=== PATIENT | male | born 1955 | race American Indian/Alaskan Native ===

== ENCOUNTER 2019-02-15 12:49 | Inpatient (IN) | payer OTHER ==
[~2019-02-15] VITALS: Ht 175.3 cm; Wt 109.3 kg
[2019-02-15] MEDS ORDERED: FUROSEMIDE 40 MG/4 ML VIAL IV ONE (13:00)
[2019-02-15] MEDS ORDERED: methylPREDNISolone SOD SUCC 125 MG/2 ML VL IV ONE (13:00)
[2019-02-15 13:44] LABS: Basophils # (auto) 0 uL; Basophils % (auto) 0.4 % (0.0-2.0); Eosinophils # (auto) 0 uL; Eosinophils % (auto) 0.3 % (0.0-7.0); Hematocrit 48.5 % (41.0-53.0); Hemoglobin 15.6 g/dL (13.5-17.5); Lymphocytes # (auto) 0.9 uL; Lymphocytes % (auto) 19.3 % (10.0-50.0); Mean Corpuscular Hemoglobin 31.2 pg (28.0-32.0); Mean Corpuscular Hgb Conc. 32.2 g/dL (32.0-36.0); Mean Corpuscular Volume 96.6 fL (80.0-100.0); Monocytes # (auto) 0.4 uL; Monocytes % (auto) 8.6 % (0.0-12.0); Neutrophils # (auto) 3.5 uL; Neutrophils % (auto) 71.4 % (37.0-80.0); Nucleated Red Blood Cells % 0.1 %; Platelet Count (auto) 132 10^3/uL (140-450); Red Blood Cells 5.02 10^6/uL (4.5-5.90); Red Cell Distribution Width 14.8 % (11.8-14.3); White Blood Cell 4.9 10^3/uL (4.4-10.8)
[2019-02-15 13:54] LABS: Albumin 3.4 g/dL (3.4-5.0); BUN/Creatinine Ratio 12.6; Calcium 8.7 mg/dL (8.5-10.1); Magnesium 2.1 mg/dL (1.6-2.6); Potassium 3.7 mmol/L (3.5-5.1)
[2019-02-15 14:02] LABS: Bilirubin, Total 1.3 mg/dL (0.2-1.0); Total Protein 7.3 g/dL (6.4-8.2)
[2019-02-15] MEDS ORDERED: NITROGLYCERIN 0.4 MG SL TAB SL PRN (16:00)
[2019-02-15] MEDS ORDERED: MORPHINE SULF INJ 2 MG/ML SYRINGE 1ML IV PRN (16:00)
[2019-02-15] MEDS ORDERED: ONDANSETRON HCL 4 MG/2 ML VIAL IV PRN (16:00)
[2019-02-15] MEDS ORDERED: ACETAMINOPHEN 500 MG TAB PO PRN (16:00)
[2019-02-15] MEDS ORDERED: HYDROcodone-ACET 5/325MG TAB PO PRN (16:00)
[2019-02-15] MEDS ORDERED: OPTISON 3ml Vial for INJ IV ONE (16:51)
[2019-02-15] MEDS: hydrALAZINE HCL 20 MG/ML VL IV PRN (17:29)
[2019-02-15 17:59] VITALS: BP 161/113
[2019-02-15] MEDS: FUROSEMIDE 20 MG/2 ML VIAL IV SCH (18:26)
[2019-02-15 18:55] VITALS: BP 152/90
--- NOTE | 2019-02-15 18:56 | NUR ---
RECEIVED PT FROM ER APPROX. 1800. A/O X 4. SOB . 02 AT 3 LITERS VIA N/C. AMBULATORY. ADMISSION HISTORY COMPLETE.
--- NOTE | 2019-02-15 19:25 | NUR ---
RECEIVED PATIENT LYING IN BED, AWAKE, ALERT, ORIENTED X4. NO S/S OF RESPIRATORY DISTRESS, DENIES SOB AND CHEST PAIN. ORIENTED ON PLAN OF CARE. BED IS LOCKED AND IN LOWEST LEVEL, SIDE RAILS UP X2, CALL LIGHT WITHIN REACH. WILL CONTINUE TO MONITOR
[2019-02-15 21:30] VITALS: BP 152/89
[2019-02-15 21:50] VITALS: BP 152/90
[2019-02-15] MEDS: ATORVASTATIN 20 MG TAB PO SCH (21:56)
[2019-02-15] MEDS: METOPROLOL TARTRATE 25 MG TAB PO SCH (21:57)
[2019-02-16] MEDS: hydrALAZINE HCL 20 MG/ML VL IV PRN (00:17)
[2019-02-16 05:00] VITALS: BP 102/62
[2019-02-16] MEDS: FUROSEMIDE 20 MG/2 ML VIAL IV SCH ×2 (05:55→17:23)
--- NOTE | 2019-02-16 06:00 | NUR ---
WITH RASHES ON THE BACK. PHOTO TAKEN
[2019-02-16 06:39] LABS: Basophils # (auto) 0 uL; Basophils % (auto) 0.3 % (0.0-2.0); Eosinophils # (auto) 0 uL; Eosinophils % (auto) 0.2 % (0.0-7.0); Hematocrit 49.1 % (41.0-53.0); Hemoglobin 15.9 g/dL (13.5-17.5); Lymphocytes # (auto) 0.4 uL; Lymphocytes % (auto) 9.6 % (10.0-50.0); Mean Corpuscular Hemoglobin 30.9 pg (28.0-32.0); Mean Corpuscular Hgb Conc. 32.4 g/dL (32.0-36.0); Mean Corpuscular Volume 95.3 fL (80.0-100.0); Monocytes # (auto) 0.1 uL; Neutrophils # (auto) 3.8 uL; Neutrophils % (auto) 86.9 % (37.0-80.0); Nucleated Red Blood Cells % 0.1 %; Platelet Count (auto) 159 10^3/uL (140-450); Red Blood Cells 5.16 10^6/uL (4.5-5.90); Red Cell Distribution Width 14.5 % (11.8-14.3); White Blood Cell 4.3 10^3/uL (4.4-10.8)
[2019-02-16 06:51] LABS: Potassium 3.8 mmol/L (3.5-5.1)
[2019-02-16 07:00] LABS: Albumin 3.4 g/dL (3.4-5.0); BUN/Creatinine Ratio 16.4; Bilirubin, Total 1.1 mg/dL (0.2-1.0); Calcium 8.8 mg/dL (8.5-10.1); Total Protein 7.4 g/dL (6.4-8.2)
--- NOTE | 2019-02-16 07:22 | NUR ---
PATIENT IS AWAKE, ALERT ORIENTED X4. NO S/S OF DISTRESS. CARE ENDORSED TO AM SHIFT RN
[2019-02-16 08:00] VITALS: BP 141/87
[2019-02-16 08:41] VITALS: BP 141/87
[2019-02-16] MEDS ORDERED: LISINOPRIL 10 MG TAB PO SCH (10:00)
[2019-02-16] MEDS ORDERED: POTASSIUM CHL 20 Meq TABLET PO SCH (10:00)
[2019-02-16] MEDS: PANTOPRAZOLE 40 MG TAB PO SCH (10:09)
[2019-02-16] MEDS: METOPROLOL TARTRATE 25 MG TAB PO SCH ×3 (10:10→22:14)
[2019-02-16 12:35] VITALS: BP 146/95
--- NOTE | 2019-02-16 14:20 | NUR ---
Respiratory note: PT ASSESSED FOR PRN MED NEB TX. PT FOUND TO BE SITTING IN BED TALKING ON THE PHONE, DENIES ANY CURRENT SOB, NO DISTRESS NOTED. HR 68 RR 18 SPO2 96% ON 2L N/C DIMINISHED WITH SCATTERED FINE INSPIRATORY CRACKLES POSTERIORLY. PT STATES HE DOES OCCASIONALLY GET SOB WITH EXERTION. PT AND RN AWARE TO HAVE RT PAGED IF NEEDED.
[2019-02-16 16:44] VITALS: BP 126/77
[2019-02-16] MEDS ORDERED: DEXTROSE (50%) 50ML SYRG IV PRN (17:15)
--- NOTE | 2019-02-16 21:55 | NUR ---
RT NOTE: PT ASSESSED FOR PRN MED NEB TX, PT LAYING IN BED RESTING WITH NO DISTRESS NOTED AT THIS TIME. RR 18, HR 70, SPO2 96% ON 2LPM NC. NO TX INDICATED AT THIS TIME.
[2019-02-16] MEDS: ACETYLCYSTEINE ORAL for CIN 20%(200MG/ML) 4ML PO SCH (22:13)
[2019-02-16] MEDS: InsuLIN REG 1unit/0.01ml Soln (100units/ml) SC SCH (22:14)
[2019-02-16] MEDS: ATORVASTATIN 20 MG TAB PO SCH (22:14)
[2019-02-16] MEDS: ACCU-CHEK COMFORT CURVE STRIP VI SCH (22:14)
[2019-02-17] MEDS: MORPHINE SULF INJ 2 MG/ML SYRINGE 1ML IV PRN (02:37)
--- NOTE | 2019-02-17 02:45 | NUR ---
URINE SAMPLE SENT TO LAB
[2019-02-17 03:23] LABS: Alcohol, Urine < 3.0 mg/dL (0-5); Amphetamine Screen, Urine NEGATIVE (NEGATIVE); Barbiturate Scree,Urine NEGATIVE (NEGATIVE); Benzodiazephine Screen, Urine NEGATIVE (NEGATIVE); Cannabinoid Screen, Urine NEGATIVE (NEGATIVE); Cocaine Screen, Urine NEGATIVE (NEGATIVE); Opiate Scree,Urine NEGATIVE (NEGATIVE); Phencyclidine Screen, Urine NEGATIVE (NEGATIVE)
[2019-02-17 03:57] VITALS: BP 128/82
[2019-02-17] MEDS: ACCU-CHEK COMFORT CURVE STRIP VI SCH ×4 (06:33→22:11)
[2019-02-17] MEDS: InsuLIN REG 1unit/0.01ml Soln (100units/ml) SC SCH ×4 (06:33→22:11)
[2019-02-17] MEDS: FUROSEMIDE 20 MG/2 ML VIAL IV SCH (06:33)
[2019-02-17 07:08] LABS: BUN/Creatinine Ratio 22.5; Calcium 8.9 mg/dL (8.5-10.1); Potassium 3.9 mmol/L (3.5-5.1)
--- NOTE | 2019-02-17 07:13 | NUR ---
PATIENT IS AWAKE, ALERT ORIENTED X4. NO S/S OF DISTRESS. CARE ENDORSED TO AM SHIFT RN
[2019-02-17 08:00] VITALS: BP 136/75
[2019-02-17 08:45] VITALS: BP 136/75
[2019-02-17] MEDS: PANTOPRAZOLE 40 MG TAB PO SCH (09:56)
[2019-02-17] MEDS: hydrALAZINE HCL 25 MG TAB PO SCH ×2 (09:57→22:00)
[2019-02-17] MEDS: METOPROLOL TARTRATE 25 MG TAB PO SCH ×2 (09:57→22:00)
[2019-02-17] MEDS: ISOSORBIDE MONONITRATE ER 60 MG TAB PO SCH (09:58)
[2019-02-17] MEDS: ACETYLCYSTEINE ORAL for CIN 20%(200MG/ML) 4ML PO SCH ×2 (09:59→22:10)
--- NOTE | 2019-02-17 11:35 | NUR ---
Respiratory note: PT ASSESSED FOR PRN MED NEB TX. POX 96% ON 3L NC, HR 60, RR 12. B/S ARE CLEAR THROUGHOUT POSTERIORLY. MED NEB TX IS NOT INDICATED AT THIS TIME. NO SOB NOTED.
[2019-02-17 13:23] VITALS: BP 103/59
[2019-02-17 17:13] VITALS: BP 104/51
[2019-02-17] MEDS: ALBUTEROL SULF 2.5 MG/0.5ML(0.5%) NEB SOLN NEB PRN (19:52)
[2019-02-17 22:00] VITALS: BP 106/61
[2019-02-17] MEDS: ATORVASTATIN 20 MG TAB PO SCH (22:05)
[2019-02-18] VITALS (8 sets, daily range): BP systolic 112–148; BP diastolic 61–97
--- NOTE | 2019-02-18 02:30 | NUR ---
URINE SAMPLE SENT TO LAB
[2019-02-18 03:23] LABS: Protein, Urine 36.9 mg/dL (0.0-11.9)
[2019-02-18] MEDS: MORPHINE SULF INJ 2 MG/ML SYRINGE 1ML IV PRN (04:25)
[2019-02-18] MEDS: InsuLIN REG 1unit/0.01ml Soln (100units/ml) SC SCH ×4 (06:39→22:05)
[2019-02-18] MEDS: ACCU-CHEK COMFORT CURVE STRIP VI SCH ×4 (06:39→22:04)
[2019-02-18 07:06] LABS: INR 1.21 (0.9-1.15); Partial Thromboplastin Time 29.6 sec (23.64-32.05)
[2019-02-18 07:13] LABS: BUN/Creatinine Ratio 28.9; Calcium 8.7 mg/dL (8.5-10.1); Potassium 3.6 mmol/L (3.5-5.1)
--- NOTE | 2019-02-18 07:39 | NUR ---
PATIENT IS AWAKE, ALERT, ORIENTED X4. NO S/S OF DISTRESS. CARE ENDORSED TO AM SHIFT RN
[2019-02-18] MEDS ORDERED: FUROSEMIDE 40 MG/4 ML VIAL IV ONE (09:45)
[2019-02-18] MEDS: IPRATROPIUM BROM 0.5 MG/2.5ML INH SOL NEB PRN ×3 (10:19→19:49)
[2019-02-18] MEDS: ALBUTEROL SULF 2.5 MG/0.5ML(0.5%) NEB SOLN NEB PRN ×3 (10:19→19:49)
--- NOTE | 2019-02-18 10:19 | NUR ---
Respiratory note: PATIENT ASSESSED FOR PRN BREATHING TX Addendum: 02/18/19 at 1051 by DC JACK, RT RT @ [id number] ASSESSED PATIENT FOR PRN BREATHING TX, PATIENT WAS SHORT OF BREATH AND STATED HE WANTED AT BREATHING TX. PATIENT RECEIVED TX WITHOUT ANY ADVERSE REACTIONS AND THEN PLACED ON 2 L NASAL CANNULA. GWEN YOUSSEF IS AWARE AND NOTIFIED.
[2019-02-18] MEDS: hydrALAZINE HCL 25 MG TAB PO SCH ×2 (11:25→22:04)
[2019-02-18] MEDS: ISOSORBIDE MONONITRATE ER 60 MG TAB PO SCH (11:27)
[2019-02-18] MEDS: PANTOPRAZOLE 40 MG TAB PO SCH (11:28)
[2019-02-18] MEDS: METOPROLOL TARTRATE 25 MG TAB PO SCH ×2 (11:29→22:04)
[2019-02-18] MEDS: ACETYLCYSTEINE ORAL for CIN 20%(200MG/ML) 4ML PO SCH ×2 (11:30→22:20)
[2019-02-18] MEDS ORDERED: FUROSEMIDE 20 MG/2 ML VIAL IV ONE (12:15)
--- NOTE | 2019-02-18 13:54 | NUR ---
Respiratory note: PATIENT RECEIVED BREATHING TX WITHOUT ANY ADVERSE REACTIONS. PATIENT IS AWAKE AND ALERT, HR 75, RR 18 SP02 97% ON 2 L NASAL CANNULA. BREATH SOUNDS ARE CLEAR AND DIMINISHED. WILL NOTIFY GWEN YOUSSEF.
--- NOTE | 2019-02-18 19:15 | NUR ---
Opening Shift Note Received report from Geovany HIDALGO. Assumed care of patient, awake and alert. No S/S of distress/SOB or pain. Instructed on POC and to call for assist PRN, will continue to monitor for changes Q1hr and PRN.
[2019-02-18] MEDS: ATORVASTATIN 20 MG TAB PO SCH (22:04)
[2019-02-19 05:00] VITALS: BP 133/78
[2019-02-19 06:14] LABS: BUN/Creatinine Ratio 22.8; Calcium 8.8 mg/dL (8.5-10.1); Potassium 3.3 mmol/L (3.5-5.1)
[2019-02-19] MEDS ORDERED: SODIUM CHLORIDE 0.9% 1,000 ML IV ONE (06:30)
[2019-02-19] MEDS: InsuLIN REG 1unit/0.01ml Soln (100units/ml) SC SCH ×4 (06:45→22:38)
[2019-02-19] MEDS: ACCU-CHEK COMFORT CURVE STRIP VI SCH ×4 (06:45→22:16)
--- NOTE | 2019-02-19 07:03 | NUR ---
Respiratory note: PRN MED NEB TX NOT INDICATED OR WANTED AT THIS TIME. HR 62, RR 16, SPO2 94% ON 1 L NC, BS CLEAR. PT INFORMED TO HIT CALL BUTTON IF FEELING SOB OR WHEEZING
--- NOTE | 2019-02-19 07:14 | NUR ---
Patient maintained on NPO for procedure this morning, no sob/distress or pain. Endorsed care to Geovany HIDALGO.
[2019-02-19 08:00] VITALS: BP 128/73
[2019-02-19 08:07] VITALS: BP 128/73
[2019-02-19] MEDS: METOPROLOL TARTRATE 25 MG TAB PO SCH (10:00)
[2019-02-19] MEDS: hydrALAZINE HCL 25 MG TAB PO SCH (10:00)
[2019-02-19] MEDS: ISOSORBIDE MONONITRATE ER 60 MG TAB PO SCH (10:00)
[2019-02-19] MEDS: ACETYLCYSTEINE ORAL for CIN 20%(200MG/ML) 4ML PO SCH ×2 (10:00→22:16)
[2019-02-19] MEDS: PANTOPRAZOLE 40 MG TAB PO SCH (10:00)
[2019-02-19] MEDS: POTASSIUM CHL 20 Meq TABLET PO SCH (10:00)
[2019-02-19] MEDS ORDERED: FUROSEMIDE 40 MG/4 ML VIAL IV ONE (11:30)
[2019-02-19] MEDS ORDERED: IOHEXOL 350 MG/ML 100ML IJ ONE (12:42)
[2019-02-19] MEDS ORDERED: LIDOCAINE 2%HCL (LOCAL ANESTH.) INJ 20ML MDV ONE (12:42)
[2019-02-19] MEDS ORDERED: fentaNYL CITRATE 100 MCG/2 ML VL ONE (12:47)
[2019-02-19] MEDS ORDERED: ANGIOMAX 250 MG VIAL IV ONE (12:47)
[2019-02-19] MEDS ORDERED: SODIUM CHL 0.9% 0 ML ONE (12:48)
[2019-02-19] MEDS ORDERED: MIDAZOLAM HCL 1MG/1ML-2 ML VIAL ONE (12:48)
[2019-02-19] MEDS ORDERED: IODIXANOL 320MG/ML 100ML BTL IV ONE (12:48)
--- NOTE | 2019-02-19 14:00 | NUR ---
I faxed [employer] order to HARRIET JOHN and JOSEFINA. I spoke with HARRIET Plaster Machine Operator Chela, she is requesting a copy of the results from the [facility] done today.
--- NOTE | 2019-02-19 14:35 | NUR ---
NUTRITION ASSESSMENT NOTES Please refer to link notes of nutrition screen form filed under the intervention section of the plan of care for further details. Est. Needs: 1950 kcal to 2500 kcal (18-23 kcal/kgBW), 73 gms to 88 gms pro (1.0-1.2 gms/kgIBW : 88 kg). Will continue to monitor pertinent labs and reassess nutrient need prn Thank you. Addendum: 02/19/19 at [address] Amended: Links added.
[2019-02-19] MEDS ORDERED: HYDROcodone-ACET 5/325MG TAB PO PRN (15:15)
[2019-02-19] MEDS ORDERED: MORPHINE SULF INJ 2 MG/ML SYRINGE 1ML IV PRN ×2 (15:15→15:30)
[2019-02-19 17:10] VITALS: BP 153/92
--- NOTE | 2019-02-19 19:10 | NUR ---
Opening Shift Note Received report from Geovany HIDALGO. Assumed care of patient, awake and alert. No S/S of distress/SOB or pain. Right groin dressing c/d/i. Instructed on POC and to call for assist PRN, will continue to monitor for changes Q1hr and PRN.
[2019-02-19 20:00] VITALS: BP 144/79
[2019-02-19 22:00] VITALS: BP 144/79
[2019-02-19] MEDS: SACUBITRIL-VALSARTAN 24mg/26mg TAB PO SCH (22:15)
[2019-02-19] MEDS: ATORVASTATIN 20 MG TAB PO SCH (22:15)
[2019-02-19] MEDS: CARVEDILOL 3.125 MG TAB PO SCH (22:16)
--- NOTE | 2019-02-20 01:37 | NUR ---
PT SEEN SLEEPING IN BED ON 2L NC, SPO2 97%, BS CLEAR AND DIMINISHED, PRN NEB TX NOT INDICATED AT THIS TIME.
[2019-02-20 05:00] VITALS: BP 138/77
[2019-02-20 06:46] LABS: Calcium 8.6 mg/dL (8.5-10.1); Potassium 3.8 mmol/L (3.5-5.1)
[2019-02-20] MEDS: ACCU-CHEK COMFORT CURVE STRIP VI SCH ×2 (06:52→11:51)
[2019-02-20] MEDS: InsuLIN REG 1unit/0.01ml Soln (100units/ml) SC SCH ×2 (06:53→11:30)
[2019-02-20 06:54] LABS: BUN/Creatinine Ratio 20.1
--- NOTE | 2019-02-20 07:15 | NUR ---
Care endorsed to Reyna HIDALGO.
--- NOTE | 2019-02-20 08:58 | NUR ---
RT NOTE: WENT TO PTS ROOM TO ASSESS FOR PRN BREATHING TX, PT SITTING UP IN BED. NO S/S OF SOB. PT AWARE TO CALL IF HAVING ANY SOB. HR 71, SPO2 99% ON 2L NC, RR 16. BREATH SOUNDS CLEAR. WILL CONTINUE TO MONITOR PT.
[2019-02-20 09:00] VITALS: BP 132/88
[2019-02-20] MEDS ORDERED: CAR3125T PO (09:20)
[2019-02-20] MEDS ORDERED: GLIP5TAB12 PO (09:20)
[2019-02-20] MEDS ORDERED: POTA-220 PO (09:20)
[2019-02-20] MEDS ORDERED: SACU1TAB PO (09:20)
[2019-02-20] MEDS ORDERED: FURO40TA4 PO (09:20)
[2019-02-20] MEDS ORDERED: glipiZIDE 5 MG TAB PO ONE (09:30)
[2019-02-20] MEDS: SACUBITRIL-VALSARTAN 24mg/26mg TAB PO SCH (10:19)
[2019-02-20] MEDS: PANTOPRAZOLE 40 MG TAB PO SCH (10:19)
[2019-02-20] MEDS: POTASSIUM CHL 20 Meq TABLET PO SCH (10:19)
[2019-02-20] MEDS: CARVEDILOL 3.125 MG TAB PO SCH (10:20)
[2019-02-20] MEDS: ACETYLCYSTEINE ORAL for CIN 20%(200MG/ML) 4ML PO SCH (10:21)
[2019-02-20 11:07] VITALS: BP 132/88
--- NOTE | 2019-02-20 11:55 | NUR ---
RE: CALL SPOKE WITH REP REGARDING THE [employer]. STATED THAT THEY WILL COME AND FIT THE PATIENT BETWEEN 2-3PM.
[2019-02-20 13:00] VITALS: BP 135/64
[2019-02-20 14:31] VITALS: BP 135/64
--- NOTE | 2019-02-20 14:50 | NUR ---
RE: [employer] REP AT BEDSIDE DISCUSSING THE USAGE OF THE EQUIPMENT.
--- NOTE | 2019-02-20 15:52 | NUR ---
Discharge instructions given as ordered. Encourage to follow up with PMD as instructed. All questions and concerns addressed. Patient verbalized understanding. Medication reconciliation form completed and copy given to patient. IV removed with catheter intact, pressure dressing applied. Telemetry unit returned to [facility]. Patient taken to vehicle via wheelchair with all personal belongings, accompanied by staff and family member. No distress noted at time of departure.
[2019-05-13] MEDS ORDERED: GLIP5TAB12 PO (15:37)
[2019-05-13] MEDS ORDERED: POTA-220 PO (15:37)
== END 2019-02-20 16:52 | disposition home or self-care (01) | DRG 812 ==
LOC: ER 12:49 → EDBD 12:49 → TELE 15:48 → TELE-CENTR 17:57
PROVIDERS: ADMIT Nurse Practitioner Acute Care; ATTEND Internal Medicine
PROC: B2111ZZ Fluoroscopy of Multiple Coronary Arteries using Low Osmolar Contrast (ICD-10-PCS; principal; 2019-02-19)
PROC: 4A023N8 Measurement of Cardiac Sampling and Pressure, Bilateral, Percutaneous Approach (ICD-10-PCS; 2019-02-19)
PROC: B2151ZZ Fluoroscopy of Left Heart using Low Osmolar Contrast (ICD-10-PCS; 2019-02-19)
DX: T43.621A Poisoning by amphetamines, accidental (unintentional), initial encounter (principal); N17.0 Acute kidney failure with tubular necrosis; I50.43 Acute on chronic combined systolic (congestive) and diastolic (congestive) heart failure; D69.6 Thrombocytopenia, unspecified; E11.21 Type 2 diabetes mellitus with diabetic nephropathy; E11.22 Type 2 diabetes mellitus with diabetic chronic kidney disease; I27.20 Pulmonary hypertension, unspecified; N18.3 Chronic kidney disease, stage 3 (moderate); I42.7 Cardiomyopathy due to drug and external agent; E11.65 Type 2 diabetes mellitus with hyperglycemia; I13.0 Hypertensive heart and chronic kidney disease with heart failure and stage 1 through stage 4 chronic kidney disease, or unspecified chronic kidney disease; E66.9 Obesity, unspecified; F10.10 Alcohol abuse, uncomplicated; E78.5 Hyperlipidemia, unspecified; J44.9 Chronic obstructive pulmonary disease, unspecified; T43.625A Adverse effect of amphetamines, initial encounter; F17.210 Nicotine dependence, cigarettes, uncomplicated; I08.1 Rheumatic disorders of both mitral and tricuspid valves; I25.10 Atherosclerotic heart disease of native coronary artery without angina pectoris; N20.0 Calculus of kidney; Z85.528 Personal history of other malignant neoplasm of kidney; Z87.01 Personal history of pneumonia (recurrent); Z90.5 Acquired absence of kidney; Y92.89 Other specified places as the place of occurrence of the external cause; Z88.1 Allergy status to other antibiotic agents; Z68.35 Body mass index [BMI] 35.0-35.9, adult; Y92.9 Unspecified place or not applicable
CPT/HCPCS: 36415; 71045; 80048; 80053; 80061; 80307; 82570; 82962; 83036; 83605; 83735; 83880; 83935; 84133; 84156; 84300; 84484; 85025; 85610; 85730; 86141; 87040; 93005; 93306; 93460; 94640; 94761; 96374; 96375; 99152; C1751; G0378; J1815; J2250; Q9956; Q9967

== ENCOUNTER → 2019-05-13 | Outpatient (CLI) | payer OTHER ==
[~2019-05-13] VITALS: Ht 175.3 cm; Wt 108.9 kg
[~2019-05-13] MED LIST: CAR3125T PO; FURO40TA4 PO; GLIP5TAB12 PO; POTA-220 PO; SACU1TAB PO
[2019-05-13 15:01] LABS: Basophils # (auto) 0.1 uL; Basophils % (auto) 1.2 % (0.0-2.0); Eosinophils # (auto) 0.1 uL; Eosinophils % (auto) 1.3 % (0.0-7.0); Hematocrit 46.4 % (41.0-53.0); Hemoglobin 15.8 g/dL (13.5-17.5); Lymphocytes # (auto) 1.2 uL; Lymphocytes % (auto) 27.6 % (10.0-50.0); Mean Corpuscular Hemoglobin 32.6 pg (28.0-32.0); Mean Corpuscular Volume 95.9 fL (80.0-100.0); Monocytes # (auto) 0.4 uL; Monocytes % (auto) 9.1 % (0.0-12.0); Neutrophils # (auto) 2.6 uL; Neutrophils % (auto) 60.8 % (37.0-80.0); Nucleated Red Blood Cells % 0.1 %; Platelet Count (auto) 151 10^3/uL (140-450); Red Blood Cells 4.83 10^6/uL (4.5-5.90); Red Cell Distribution Width 16.9 % (11.8-14.3); White Blood Cell 4.3 10^3/uL (4.4-10.8)
[2019-05-13 15:22] LABS: Albumin 3.4 g/dL (3.4-5.0); Calcium 8.7 mg/dL (8.5-10.1); Potassium 3.5 mmol/L (3.5-5.1)
[2019-05-13 15:26] LABS: BUN/Creatinine Ratio 16.3; Bilirubin, Total 0.6 mg/dL (0.2-1.0); Total Protein 7.4 g/dL (6.4-8.2)
[2019-05-13 15:29] LABS: INR 1.02 (0.9-1.15); Partial Thromboplastin Time 28.7 sec (23.64-32.05)
[2019-05-13 15:49] LABS: Urine Bacteria NONE SEEN /hpf (None Seen); Urine Blood Negative /uL (Negative); Urine Specific Gravity 1.016 (1.001-1.035); Urine WBC <1 /hpf (0 - 3)
== END | disposition home or self-care (01) ==
LOC: SUR 14:45 → EDSTATUS 05-18 07:00
PROVIDERS: ATTEND Urology
DX: C64.9 Malignant neoplasm of unspecified kidney, except renal pelvis (principal); N20.0 Calculus of kidney; N28.89 Other specified disorders of kidney and ureter; E66.9 Obesity, unspecified; E11.9 Type 2 diabetes mellitus without complications; F17.210 Nicotine dependence, cigarettes, uncomplicated; Z88.1 Allergy status to other antibiotic agents; Z68.35 Body mass index [BMI] 35.0-35.9, adult; Z79.84 Long term (current) use of oral hypoglycemic drugs
CPT/HCPCS: 36415; 80053; 81001; 85025; 85610; 85730; 86850; 86900; 86901; 87086

== ENCOUNTER 2019-08-17 08:43 | Inpatient (IN) | payer OTHER ==
[2019-08-12 08:58] LABS: Urine WBC None Seen /hpf (0 - 3)
[2019-08-12 09:07] LABS: Basophils # (auto) 0 uL; Basophils % (auto) 0.7 % (0.0-2.0); Eosinophils # (auto) 0.1 uL; Eosinophils % (auto) 1.1 % (0.0-7.0); Hematocrit 49.4 % (41.0-53.0); Lymphocytes # (auto) 1.3 uL; Lymphocytes % (auto) 24.5 % (10.0-50.0); Mean Corpuscular Hemoglobin 33.5 pg (28.0-32.0); Mean Corpuscular Hgb Conc. 34.5 g/dL (32.0-36.0); Mean Corpuscular Volume 97.2 fL (80.0-100.0); Monocytes # (auto) 0.4 uL; Monocytes % (auto) 6.9 % (0.0-12.0); Neutrophils # (auto) 3.5 uL; Neutrophils % (auto) 66.8 % (37.0-80.0); Nucleated Red Blood Cells % 0.2 %; Platelet Count (auto) 175 10^3/uL (140-450); Red Blood Cells 5.08 10^6/uL (4.5-5.90); Red Cell Distribution Width 12.7 % (11.8-14.3); White Blood Cell 5.3 10^3/uL (4.4-10.8)
[2019-08-12 09:18] LABS: Urine Bacteria NONE SEEN /hpf (None Seen); Urine Blood Negative /uL (Negative); Urine Specific Gravity 1.016 (1.001-1.035)
[2019-08-12 09:21] LABS: INR 1.05 (0.9-1.15); Partial Thromboplastin Time 29.4 sec (23.64-32.05)
[2019-08-12 09:34] LABS: Albumin 3.5 g/dL (3.4-5.0); Calcium 8.5 mg/dL (8.5-10.1); Potassium 3.6 mmol/L (3.5-5.1)
[2019-08-12 09:38] LABS: BUN/Creatinine Ratio 16.2; Bilirubin, Total 0.3 mg/dL (0.2-1.0); Total Protein 7.6 g/dL (6.4-8.2)
[~2019-08-17] VITALS: Ht 175.3 cm; Wt 109.9 kg
[~2019-08-17 08:43] MED LIST changes: -SACU1TAB PO
[2019-08-17] MEDS ORDERED: ceFOXitin 2GM/100ML 100 ML IV ONE (10:15)
[2019-08-17] MEDS ORDERED: LIDOCAINE W/ EPINEPHRINE 1 % INJ 30ML ONE (10:34)
[2019-08-17] MEDS ORDERED: BUPIVACAINE 0.25% INJ 50ML VIAL ONE (10:34)
[2019-08-17] MEDS ORDERED: MIDAZOLAM HCL 1MG/1ML-2 ML VIAL ONE (10:53)
[2019-08-17] MEDS ORDERED: fentaNYL CITRATE 5 ML ONE (10:54)
[2019-08-17] MEDS ORDERED: ROCURONIUM 10MG/ML 10ML VIAL IV ONE (11:01)
[2019-08-17] MEDS ORDERED: PROPOFOL 10 MG/ML 20 ML IV ONE (11:05)
[2019-08-17] MEDS ORDERED: ACETAMINOPHEN/CODEINE#3 (300/30mg) TAB PO PRN (11:30)
[2019-08-17] MEDS ORDERED: diphenhdrAMINE HCL 50 MG/1 ML VL IV PRN (11:30)
[2019-08-17] MEDS ORDERED: CEFOXITIN SODIUM 1 GM in D5W 5% 50 ML IV SCH (11:30)
[2019-08-17] MEDS ORDERED: HYDROmorphone HCL 2 MG/ML VL ONE (12:23)
[2019-08-17] MEDS ORDERED: ePHEDrine SULFATE 50 MG/ML AMP IV PRN (12:30)
[2019-08-17] MEDS ORDERED: hydrALAZINE HCL 20 MG/ML VL IV PRN (12:30)
[2019-08-17] MEDS ORDERED: HYDROmorphone HCL 2 MG/ML VL IV PRN (12:30)
[2019-08-17] MEDS ORDERED: ONDANSETRON HCL 4 MG/2 ML VIAL IV PRN (12:30)
[2019-08-17] MEDS: HYDROmorphone HCL 2 MG/ML VL IV PRN ×5 (14:00→21:31)
[2019-08-17 14:54] LABS: BUN/Creatinine Ratio 12.3
--- NOTE | 2019-08-17 15:18 | NUR ---
Telemetry admit from OR EVELIN LOBATO admitted to Telemetry unit after SBAR received. Patient oriented to primary RN, unit, room, bed, and unit policies regarding patient care and visiting hours. Patient now on continuous telemetry monitoring, tele box # 63 and telemetry reading on arrival to unit is 60. Patient placed on bedside oxygen, weighed by bedscale and encouraged to call if they need something. All questions and concerns addressed, patient verbalized understanding. Visitors at bedside.
[2019-08-17] MEDS: ONDANSETRON HCL 4 MG/2 ML VIAL IV PRN (16:20)
[2019-08-17] MEDS: D5W/SOD CHL 0.45% 1,000 ML IV SCH (16:26)
[2019-08-17] MEDS: CEFOXITIN SODIUM 1 GM in D5W 5% 50 ML IV SCH ×2 (16:47→23:35)
[2019-08-17 16:51] VITALS: BP 181/90
[2019-08-17 17:10] VITALS: BP 149/85
[2019-08-17 17:12] VITALS: BP 188/82
--- NOTE | 2019-08-17 17:30 | NUR ---
Patient's Blood pressure re-checked 149/85, HR 62, O2. 96%.
[2019-08-17] MEDS: glipiZIDE 5 MG TAB PO SCH (18:16)
--- NOTE | 2019-08-17 20:00 | NUR ---
Opening Shift Note Assumed care of patient, drowsy and alert. No S/S of distress/SOB or pain. Instructed on POC and to call for assist PRN, will continue to monitor for changes Q1hr and PRN.
[2019-08-17 21:16] VITALS: BP 173/82
[2019-08-17] MEDS: CARVEDILOL 3.125 MG TAB PO SCH ×2 (21:32→22:48)
[2019-08-18] MEDS: HYDROmorphone HCL 2 MG/ML VL IV PRN ×5 (01:40→20:40)
--- NOTE | 2019-08-18 01:40 | NUR ---
Patient called and said his one i.v.line is out, Checked and big dressing is also loose ,almost half of the dressing is out soiled with blood,no blood oozing in the site, so changed the dressing with gauze,packed with abdominal pad and tape with Mepore dressing.
[2019-08-18] MEDS: D5W/SOD CHL 0.45% 1,000 ML IV SCH ×3 (03:19→11:23)
[2019-08-18 05:27] VITALS: BP 142/76
[2019-08-18] MEDS: glipiZIDE 5 MG TAB PO SCH ×2 (06:20→17:41)
--- NOTE | 2019-08-18 07:25 | NUR ---
Report given to Amberly Johnson, patient is sitting in the edge of the bed, stringer change to leg bag, applied abdominal binder for support.
--- NOTE | 2019-08-18 07:40 | NUR ---
Opening Shift Note Assumed care of patient, asleep but easily aroused. No S/S of distress/SOB or pain. Instructed on POC and to call for assist PRN, will continue to monitor for changes Q1hr and PRN.
[2019-08-18] MEDS: CEFOXITIN SODIUM 1 GM in D5W 5% 50 ML IV SCH (08:13)
[2019-08-18 09:00] VITALS: BP 168/86
[2019-08-18] MEDS: CARVEDILOL 3.125 MG TAB PO SCH ×2 (09:43→21:40)
[2019-08-18] MEDS ORDERED: POTASSIUM CHL 20 Meq TABLET PO SCH (10:00)
[2019-08-18] MEDS ORDERED: FUROSEMIDE 40 MG TAB PO SCH (10:00)
[2019-08-18] MEDS: ONDANSETRON HCL 4 MG/2 ML VIAL IV PRN (11:21)
[2019-08-18 12:30] VITALS: BP 156/67
--- NOTE | 2019-08-18 12:30 | NUR ---
Gruber catheter dc'd Order to discontinue Gruber catheter. Gruber dc'd with clean technique following deflation of balloon. Patient tolerated well with no complaints of pain. Urinal given. Continue care.
[2019-08-18] MEDS ORDERED: amLODIPine BESYLATE 5 MG TAB PO ONE (14:00)
[2019-08-18] MEDS ORDERED: HYDROcodone-ACET 5/325MG TAB PO PRN (14:00)
--- NOTE | 2019-08-18 14:00 | NUR ---
Hospitalist Rounding Dr. Collins rounded on patient.
--- NOTE | 2019-08-18 14:07 | NUR ---
Urology Paged SANDRA (Bernarda Johnson) regarding patient's held discharge.
[2019-08-18] MEDS ORDERED: DEXTROSE (50%) 50ML SYRG IV PRN (14:15)
[2019-08-18] MEDS ORDERED: cloNIDine HCL 0.1 MG TAB PO PRN (14:15)
--- NOTE | 2019-08-18 14:16 | NUR ---
Urology Received call from SANDRA (Bernarda Johnson), she was notified that the patient's discharge is held. Dr. Kimble will be asset protection officer for urology during the holiday. Patient is cleared for discharge from a urology perspective.
[2019-08-18] MEDS: SODIUM CHLORIDE 0.9% 1,000 ML IV SCH (14:26)
[2019-08-18 16:38] VITALS: BP 169/94
[2019-08-18] MEDS: ACCU-CHEK COMFORT CURVE STRIP VI SCH ×2 (16:45→22:00)
[2019-08-18] MEDS: InsuLIN REG 1unit/0.01ml Soln (100units/ml) SC SCH ×2 (17:42→22:00)
--- NOTE | 2019-08-18 19:00 | NUR ---
Opening Shift Note Assumed care of patient, awake and alert. No S/S of distress/SOB or pain. Instructed on POC and to call for assist PRN, will continue to monitor for changes Q1hr and PRN.
[2019-08-18 22:00] VITALS: BP 143/70
[2019-08-19] MEDS: HYDROmorphone HCL 2 MG/ML VL IV PRN ×5 (00:01→21:23)
[2019-08-19 04:45] VITALS: BP 146/79
[2019-08-19 05:20] LABS: Basophils # (auto) 0 uL; Basophils % (auto) 0.5 % (0.0-2.0); Eosinophils # (auto) 0 uL; Eosinophils % (auto) 0.5 % (0.0-7.0); Hematocrit 42.2 % (41.0-53.0); Hemoglobin 14.8 g/dL (13.5-17.5); Lymphocytes # (auto) 0.9 uL; Lymphocytes % (auto) 11.9 % (10.0-50.0); Mean Corpuscular Hemoglobin 33.9 pg (28.0-32.0); Mean Corpuscular Hgb Conc. 35.2 g/dL (32.0-36.0); Mean Corpuscular Volume 96.5 fL (80.0-100.0); Monocytes # (auto) 0.6 uL; Neutrophils % (auto) 79.1 % (37.0-80.0); Nucleated Red Blood Cells % 0.1 %; Platelet Count (auto) 129 10^3/uL (140-450); Red Blood Cells 4.38 10^6/uL (4.5-5.90); Red Cell Distribution Width 12.7 % (11.8-14.3); White Blood Cell 7.6 10^3/uL (4.4-10.8)
[2019-08-19 05:48] LABS: Calcium 7.8 mg/dL (8.5-10.1); Potassium 3.5 mmol/L (3.5-5.1)
[2019-08-19] MEDS: InsuLIN REG 1unit/0.01ml Soln (100units/ml) SC SCH ×4 (07:00→21:36)
[2019-08-19] MEDS: ACCU-CHEK COMFORT CURVE STRIP VI SCH ×4 (07:00→21:30)
[2019-08-19] MEDS: glipiZIDE 5 MG TAB PO SCH (07:32)
[2019-08-19 09:00] VITALS: BP 142/61
[2019-08-19] MEDS: amLODIPine BESYLATE 5 MG TAB PO SCH (10:26)
[2019-08-19] MEDS: CARVEDILOL 3.125 MG TAB PO SCH ×2 (10:27→21:27)
[2019-08-19] MEDS: SODIUM CHLORIDE 0.9% 1,000 ML IV SCH ×2 (10:27)
--- NOTE | 2019-08-19 12:00 | NUR ---
SPOKE TO Yue MACIAS. PATIENT TO STAY ONE MORE DAY.
[2019-08-19] MEDS ORDERED: DOCUSATE SOD 100 MG CAP PO ONE (12:45)
[2019-08-19] MEDS ORDERED: DOCUSATE SOD 100 MG CAP PO PRN (12:45)
[2019-08-19 13:00] VITALS: BP 139/57
[2019-08-19 17:00] VITALS: BP 127/52
--- NOTE | 2019-08-19 18:13 | NUR ---
DRESSING CHANGES ALL DRESSING CHANGED. BOTTOM LATERAL DRESSING SATURATED WITH MOD SANGUINOUS FLUID.
--- NOTE | 2019-08-19 19:20 | NUR ---
Opening Shift Note Received report from jas Cheung RN. Assumed care of patient, awake and alert. No S/S of distress/SOB but c/o pain to right abdomen. Instructed on POC and to call for assist PRN, will continue to monitor for changes Q1hr and PRN. Bed placed in lowest position, bed alarm turned on and call light within reach.
[2019-08-19] MEDS: ONDANSETRON HCL 4 MG/2 ML VIAL IV PRN (21:24)
[2019-08-19 22:00] VITALS: BP 151/68
[2019-08-20] MEDS: ONDANSETRON HCL 4 MG/2 ML VIAL IV PRN ×2 (04:58→06:01)
[2019-08-20] MEDS: HYDROmorphone HCL 2 MG/ML VL IV PRN (04:58)
[2019-08-20 05:00] VITALS: BP 178/75
--- NOTE | 2019-08-20 05:57 | NUR ---
PATIENT OFFERED STOOL SOFTENER, PATIENT REFUSED.
[2019-08-20 06:35] LABS: Potassium 3.7 mmol/L (3.5-5.1)
[2019-08-20 06:40] LABS: BUN/Creatinine Ratio 12.7; Calcium 8.3 mg/dL (8.5-10.1)
[2019-08-20] MEDS: ACCU-CHEK COMFORT CURVE STRIP VI SCH ×2 (07:00→11:30)
[2019-08-20] MEDS: InsuLIN REG 1unit/0.01ml Soln (100units/ml) SC SCH ×2 (07:00→12:21)
[2019-08-20 09:00] VITALS: BP 162/76
[2019-08-20] MEDS: amLODIPine BESYLATE 5 MG TAB PO SCH (09:26)
[2019-08-20] MEDS: CARVEDILOL 3.125 MG TAB PO SCH (09:26)
--- NOTE | 2019-08-20 09:30 | NUR ---
DRESSING: HORIZONTAL DRESSING CHANGED MODERATE AMOUNT OF SEROSANGUINEOUS FLUID. PATIENT TOLERATED WELL.
--- NOTE | 2019-08-20 09:30 | NUR ---
BM: PATIENT REPORTS ONE LARGE BM.
--- NOTE | 2019-08-20 12:08 | NUR ---
REGARDING DRESSING CHANGE: INFORMED M.D. OF WARMTH AROUND APRIL AND SEROSANGUINEOUS FLUID. AWAITING ORDER.
--- NOTE | 2019-08-20 13:32 | NUR ---
Discharge instructions given as ordered. Encourage to follow up with PMD as instructed. Patient instructed to keep all appointments made with ilbegi and pcp. Patient instructed to follow up with labs and to fill prescriptions provided All questions and concerns addressed. Patient verbalized understanding. IV removed with catheter intact, pressure dressing applied. Telemetry unit returned to ICU. Patient taken to vehicle via wheelchair with all personal belongings, accompanied by staff and family member. No distress noted at time of departure.
== END 2019-08-20 13:31 | disposition home or self-care (01) | DRG 442 ==
LOC: SUR 08:43 → WEST WING 15:22 → TELE-WESTW 08-20 07:35
PROVIDERS: ADMIT Urology; ATTEND Urology
PROC: 8E0W4CZ Robotic Assisted Procedure of Trunk Region, Percutaneous Endoscopic Approach (ICD-10-PCS; 2019-08-17)
PROC: 07TC4ZZ Resection of Pelvis Lymphatic, Percutaneous Endoscopic Approach (ICD-10-PCS; 2019-08-17)
PROC: 0TT04ZZ Resection of Right Kidney, Percutaneous Endoscopic Approach (ICD-10-PCS; principal; 2019-08-17 10:45)
DX: C64.1 Malignant neoplasm of right kidney, except renal pelvis (principal); N17.9 Acute kidney failure, unspecified; I42.9 Cardiomyopathy, unspecified; E66.01 Morbid (severe) obesity due to excess calories; Z68.35 Body mass index [BMI] 35.0-35.9, adult; F17.210 Nicotine dependence, cigarettes, uncomplicated; J44.9 Chronic obstructive pulmonary disease, unspecified; E11.9 Type 2 diabetes mellitus without complications; I10 Essential (primary) hypertension; Z88.1 Allergy status to other antibiotic agents; Z79.84 Long term (current) use of oral hypoglycemic drugs
CPT/HCPCS: 36415; 80048; 80053; 81001; 82962; 83036; 85025; 85610; 85730; 86850; 86900; 86901; G0378; J0694; J1815; J2250; J2405; J2704; J3490; J7060

== ENCOUNTER 2022-09-07 15:11 | Inpatient (IN) | payer OTHER ==
[~2022-09-07] VITALS: Ht 170.2 cm; Wt 106.8 kg
[2022-09-07] MEDS ORDERED: IPRATROPIUM BROM 0.5 MG/2.5ML INH SOL NEB ONE (16:45)
[2022-09-07] MEDS ORDERED: methylPREDNISolone SOD SUCC 125 MG/2 ML VL IV ONE (16:45)
[2022-09-07] MEDS ORDERED: ALBUTEROL SULF 2.5 MG/0.5ML(0.5%) NEB SOLN NEB ONE (16:45)
[2022-09-07 17:12] LABS: Basophils # (auto) 0 10 ^3/uL (0-0.2); Basophils % (auto) 0.5 % (0.0-2.0); Eosinophils # (auto) 0 10 ^3/uL (0-0.8); Eosinophils % (auto) 0.2 % (0.0-7.0); Hematocrit 34.6 % (41.0-53.0); Hemoglobin 11.5 g/dL (13.5-17.5); Lymphocytes # (auto) 0.7 10 ^3/uL (0.4-5.4); Lymphocytes % (auto) 8.5 % (10.0-50.0); Mean Corpuscular Hemoglobin 31.8 pg (28.0-32.0); Mean Corpuscular Hgb Conc. 33.1 g/dL (32.0-36.0); Mean Corpuscular Volume 96.1 fL (80.0-100.0); Monocytes # (auto) 0.7 10 ^3/uL (0-1.3); Monocytes % (auto) 9.1 % (0.0-12.0); Neutrophils # (auto) 6.3 10 ^3/uL (1.6-8.6); Neutrophils % (auto) 81.7 % (37.0-80.0); Nucleated Red Blood Cells % 0.1 %; Red Cell Distribution Width 13.7 % (11.8-14.3); White Blood Cell 7.7 10^3/uL (4.4-10.8)
[2022-09-07 17:30] LABS: Calcium 8.9 mg/dL (8.5-10.1); Potassium 4.5 mmol/L (3.5-5.1)
[2022-09-07 17:33] LABS: Albumin 2.9 g/dL (3.4-5.0); BUN/Creatinine Ratio 13.5
[2022-09-07 17:43] LABS: Bilirubin, Total 0.3 mg/dL (0.2-1.0); Total Protein 6.6 g/dL (6.4-8.2)
[2022-09-07] MEDS ORDERED: IPRATROPIUM BROM 0.5 MG/2.5ML INH SOL NEB PRN (20:00)
[2022-09-07] MEDS ORDERED: ALBUTEROL SULF 2.5 MG/0.5ML(0.5%) NEB SOLN NEB PRN (20:00)
[2022-09-07] MEDS ORDERED: SODIUM CHLORIDE 0.9% 1,000 ML IV ONE (20:00)
[2022-09-07 20:17] LABS: Urine Bacteria FEW /hpf (None Seen); Urine Blood 1+ /uL (Negative); Urine Hyaline Cast FEW /lpf (0 - 2); Urine Specific Gravity 1.015 (1.001-1.035); Urine WBC 5 /hpf (0 - 3)
[2022-09-07] MEDS ORDERED: NITROGLYCERIN 0.4 MG SL TAB SL PRN (22:15)
[2022-09-07] MEDS ORDERED: DEXTROSE (50%) 50ML SYRG IV PRN (22:15)
[2022-09-07] MEDS ORDERED: MORPHINE SULFATE INJ 2 MG/ml SYRG IV PRN (22:15)
[2022-09-07] MEDS ORDERED: cefTRIAXone 1GM/50ML D5W 50 ML IV ONE (22:15)
[2022-09-07 23:15] VITALS: BP 180/82
[2022-09-07 23:38] LABS: INR 1.15 (0.9-1.15)
[2022-09-07] MEDS: DOXYCYCLINE 100 MG TAB/CAP PO SCH (23:53)
[2022-09-08] VITALS (7 sets, daily range): BP systolic 122–176; BP diastolic 51–71
[2022-09-08] MEDS: IPRATROPIUM BROM 0.5 MG/2.5ML INH SOL NEB SCH ×4 (00:33→20:27)
[2022-09-08] MEDS: ALBUTEROL SULF 2.5 MG/0.5ML(0.5%) NEB SOLN NEB SCH ×4 (00:33→20:27)
[2022-09-08] MEDS: cloNIDine HCL 0.1 MG TAB PO PRN (01:46)
[2022-09-08] MEDS: FUROSEMIDE 40 MG/4 ML VIAL IV SCH ×3 (05:24→22:03)
[2022-09-08] MEDS: ACCU-CHEK COMFORT CURVE STRIP VI SCH ×4 (06:16→22:01)
[2022-09-08] MEDS: InsuLIN REG 1unit/0.01ml Soln (100units/ml) SC SCH ×4 (06:26→22:02)
[2022-09-08 08:20] LABS: Hematocrit 35.7 % (41.0-53.0); Hemoglobin 11.3 g/dL (13.5-17.5); Mean Corpuscular Hemoglobin 31.2 pg (28.0-32.0); Mean Corpuscular Hgb Conc. 31.7 g/dL (32.0-36.0); Mean Corpuscular Volume 98.4 fL (80.0-100.0); Red Blood Cells 3.63 10^6/uL (4.5-5.90); Red Cell Distribution Width 13.8 % (11.8-14.3); White Blood Cell 5.9 10^3/uL (4.4-10.8)
[2022-09-08 08:46] LABS: Potassium 4.6 mmol/L (3.5-5.1)
[2022-09-08 08:47] LABS: BUN/Creatinine Ratio 13.8
[2022-09-08 08:48] LABS: Albumin 2.7 g/dL (3.4-5.0); Bilirubin, Total 0.3 mg/dL (0.2-1.0); Calcium 8.1 mg/dL (8.5-10.1); Total Protein 6.4 g/dL (6.4-8.2)
[2022-09-08 09:11] LABS: Basophils % (manual) 0 (0.0-2.0); Blast Cells 0; Eosinophils % (manual) 0 (0-7); Metamyelocytes % 0; Monocytes % (manual) 0 (0-12); Myelocytes % 0; Promyelocytes % 0; Reactive Lymphocytes 0
[2022-09-08] MEDS: DOXYCYCLINE 100 MG TAB/CAP PO SCH ×2 (10:03→22:04)
[2022-09-08] MEDS: methylPREDNISolone SOD SUCC 125 MG/2 ML VL IV SCH ×2 (10:03→22:04)
[2022-09-08 18:37] LABS: Band Neutrophils % (manual) 21; Lymphocytes % (manual) 6 (10.0-50.0)
[2022-09-08] MEDS ORDERED: IPRATROPIUM BROM 0.5 MG/2.5ML INH SOL NEB SCH (20:00)
[2022-09-08] MEDS ORDERED: ALBUTEROL SULF 2.5 MG/0.5ML(0.5%) NEB SOLN NEB SCH (20:00)
[2022-09-09] MEDS: IPRATROPIUM BROM 0.5 MG/2.5ML INH SOL NEB SCH ×4 (00:05→17:58)
[2022-09-09] MEDS: ALBUTEROL SULF 2.5 MG/0.5ML(0.5%) NEB SOLN NEB SCH ×4 (00:05→17:58)
[2022-09-09 05:00] VITALS: BP 177/55
[2022-09-09] MEDS: FUROSEMIDE 40 MG/4 ML VIAL IV SCH ×3 (05:31→21:43)
[2022-09-09 05:49] LABS: BUN/Creatinine Ratio 15.2; Calcium 8.8 mg/dL (8.5-10.1); Phosphorus 5.9 mg/dL (2.5-4.90)
[2022-09-09] MEDS: cloNIDine HCL 0.1 MG TAB PO PRN ×2 (06:24→13:21)
[2022-09-09] MEDS: ACCU-CHEK COMFORT CURVE STRIP VI SCH ×4 (06:25→21:54)
[2022-09-09] MEDS: InsuLIN REG 1unit/0.01ml Soln (100units/ml) SC SCH ×4 (06:26→21:55)
[2022-09-09] MEDS ORDERED: TAMS0.4C36 PO (07:02)
[2022-09-09] MEDS ORDERED: POTA-167 PO (07:02)
[2022-09-09] MEDS ORDERED: GEMF-19 PO (07:02)
[2022-09-09] MEDS ORDERED: GABA100C9 PO (07:02)
[2022-09-09] MEDS ORDERED: DUTA0.5C11 PO (07:02)
[2022-09-09] MEDS: DOXYCYCLINE 100 MG TAB/CAP PO SCH ×2 (08:27→21:42)
[2022-09-09] MEDS: SEVELAMER 800 MG TAB PO SCH ×3 (08:27→17:14)
[2022-09-09 09:00] VITALS: BP 143/80
[2022-09-09] MEDS ORDERED: guaiFENesin-DM 100/10mg/5ml SYR PO PRN (09:30)
[2022-09-09] MEDS ORDERED: FURO1TAB31 PO (12:50)
[2022-09-09] MEDS ORDERED: CHOL20007 PO (12:50)
[2022-09-09] MEDS ORDERED: AML5T PO (12:50)
[2022-09-09] MEDS ORDERED: LISI20TA28 PO (12:50)
[2022-09-09 13:00] VITALS: BP 179/84
[2022-09-09] MEDS: methylPREDNISolone SOD SUCC 40 MG/ML VL IV SCH ×2 (13:15→21:42)
[2022-09-09] MEDS: AZITHROMYCIN 500MG/ 250ML 250 ML IV SCH (15:34)
[2022-09-09] MEDS: amLODIPine BESYLATE 5 MG TAB PO SCH (15:35)
[2022-09-09 17:00] VITALS: BP 140/71
[2022-09-09 22:00] VITALS: BP 151/77
[2022-09-10] MEDS: ALBUTEROL SULF 2.5 MG/0.5ML(0.5%) NEB SOLN NEB SCH ×3 (00:29→11:19)
[2022-09-10] MEDS: IPRATROPIUM BROM 0.5 MG/2.5ML INH SOL NEB SCH ×3 (00:29→11:19)
[2022-09-10 05:00] VITALS: BP 164/58
[2022-09-10] MEDS: methylPREDNISolone SOD SUCC 40 MG/ML VL IV SCH (06:07)
[2022-09-10] MEDS: FUROSEMIDE 40 MG/4 ML VIAL IV SCH (06:07)
[2022-09-10] MEDS: ACCU-CHEK COMFORT CURVE STRIP VI SCH ×2 (06:08→11:28)
[2022-09-10] MEDS: InsuLIN REG 1unit/0.01ml Soln (100units/ml) SC SCH ×3 (06:09→11:29)
[2022-09-10] MEDS: amLODIPine BESYLATE 5 MG TAB PO SCH (07:40)
[2022-09-10] MEDS: DOXYCYCLINE 100 MG TAB/CAP PO SCH (07:41)
[2022-09-10] MEDS: AZITHROMYCIN 500MG/ 250ML 250 ML IV SCH (07:41)
[2022-09-10] MEDS: cloNIDine HCL 0.1 MG TAB PO PRN (07:41)
[2022-09-10] MEDS: SEVELAMER 800 MG TAB PO SCH ×2 (07:41→11:28)
[2022-09-10 09:00] VITALS: BP 170/60
[2022-09-10] MEDS ORDERED: FURO1TAB31 PO (09:24)
[2022-09-10] MEDS ORDERED: IPR002IS NEB (09:24)
[2022-09-10] MEDS ORDERED: DEXT1SYP9 PO (09:24)
[2022-09-10] MEDS ORDERED: SEVE800T PO (09:24)
[2022-09-10] MEDS ORDERED: DOX100T PO (09:24)
[2022-09-10] MEDS ORDERED: PRED20TA2 PO (09:24)
[2022-09-10 10:03] LABS: Calcium 8.4 mg/dL (8.5-10.1); Potassium 3.6 mmol/L (3.5-5.1)
[2022-09-10 12:14] LABS: Protein, Urine 339.3 mg/dL (0.0-11.9)
[2022-09-10 13:00] VITALS: BP 154/75
== END 2022-09-10 13:30 | disposition home or self-care (01) | DRG 291 ==
LOC: ER 15:11 → EDBD 15:11 → TELE 22:10 → TELE-CENTR 09-08 02:46 → OBSVTOIN 09-10 00:36
PROVIDERS: ADMIT Internal Medicine; ATTEND Internal Medicine
DX: I13.0 Hypertensive heart and chronic kidney disease with heart failure and stage 1 through stage 4 chronic kidney disease, or unspecified chronic kidney disease (principal); J18.9 Pneumonia, unspecified organism; J96.01 Acute respiratory failure with hypoxia; N17.9 Acute kidney failure, unspecified; J44.0 Chronic obstructive pulmonary disease with (acute) lower respiratory infection; J44.1 Chronic obstructive pulmonary disease with (acute) exacerbation; E66.9 Obesity, unspecified; E11.22 Type 2 diabetes mellitus with diabetic chronic kidney disease; F17.210 Nicotine dependence, cigarettes, uncomplicated; I50.9 Heart failure, unspecified; Z20.822 Contact with and (suspected) exposure to COVID-19; N18.32 Chronic kidney disease, stage 3b; Z85.528 Personal history of other malignant neoplasm of kidney; Z90.5 Acquired absence of kidney; Z68.37 Body mass index [BMI] 37.0-37.9, adult; Z88.8 Allergy status to other drugs, medicaments and biological substances
CPT/HCPCS: 36415; 36600; 71045; 71250; 76775; 80048; 80053; 81001; 82570; 82805; 82962; 83036; 83880; 84100; 84156; 84484; 85007; 85025; 85027; 85610; 87426; 87804; 93306; 94640; 96361; 96365; 96375; G0378; J0696; J1815